=== PATIENT | female | born 1965 | race Caucasian/White ===

== ENCOUNTER → 2020-01-05 | Outpatient (CLI) | payer OTHER ==
--- NOTE | 2020-01-05 15:09 | Diagnostic Imaging Report ---
INDICATION: Low back pain. COMPARISON: None available. TECHNIQUE: Three views of the lumbar spine were obtained. FINDINGS: There is a compression deformity involving the superior endplate of L1. There may be some retropulsion of the posterior endplate into the spinal canal. Remainder of the lumbar vertebrae are normal in height. Intervertebral disc space heights are preserved. Scattered vascular calcifications. IMPRESSION: Compression injury of L1 may be a [address] of the lumbar spine without contrast for further assessment. Dictated by: Dictated on workstation # [id number]
== END ==
LOC: RAD FS 12:59
PROVIDERS: ATTEND Emergency Medicine
DX: S39.82XA Other specified injuries of lower back, initial encounter (principal); V89.2XXA Person injured in unspecified motor-vehicle accident, traffic, initial encounter
CPT/HCPCS: 72100

== ENCOUNTER → 2020-01-07 | Outpatient (CLI) | payer OTHER ==
--- NOTE | 2020-01-07 11:52 | Diagnostic Imaging Report ---
PROCEDURE: CT lumbar spine without contrast. TECHNIQUE: Multiple contiguous axial images were obtained through the lumbar spine without the use of intravenous contrast. Sagittal and coronal reformations were then performed. Auto Exposure Controls were utilized during the CT exam to meet ALARA standards for radiation dose reduction. INDICATION: Compression fracture with possible retropulsion. COMPARISON: Lumbar spine radiograph 01/05/2020. FINDINGS: There are 5 lumbar-type vertebral bodies. There is a burst fracture of L1 resulting in retropulsion and moderate to severe spinal canal stenosis. There is approximately 50% height loss of the L1 segment. The posterior elements appear spared. No other fractures identified. Moderate facet arthropathy at L4-S1. Partially calcified disc protrusion at L5-S1 results in at least mild spinal canal stenosis. No high-grade neural foraminal narrowing is identified. Cholecystectomy. Moderate atherosclerotic calcifications. Mild degenerative changes in the sacroiliac joints. IMPRESSION: Burst fracture of L1 vertebral body with retropulsion resulting in moderate to severe spinal canal stenosis. Recommend surgical consultation. Dictated by: Dictated on workstation # [id number]
== END ==
LOC: RAD FS 11:12
PROVIDERS: ATTEND Emergency Medicine
DX: S32.010A Wedge compression fracture of first lumbar vertebra, initial encounter for closed fracture (principal); M48.061 Spinal stenosis, lumbar region without neurogenic claudication; X58.XXXA Exposure to other specified factors, initial encounter
CPT/HCPCS: 72131

== ENCOUNTER → 2021-10-27 | Outpatient (CLI) | payer OTHER ==
[2021-10-27 15:20] LABS: CREATININE SERUM 0.61 MG/DL (0.60-1.30)
[2021-10-27 15:23] LABS: CALCIUM 9.8 MG/DL (8.5-10.1)
[2021-10-27 15:24] LABS: ALBUMIN 3.9 GM/DL (3.2-4.5); BILIRUBIN,TOTAL 0.2 MG/DL (0.1-1.0); TOTAL PROTEIN 7.3 GM/DL (6.4-8.2)
== END ==
LOC: LAB FS 14:26
PROVIDERS: ATTEND Registered Nurse Emergency
DX: E11.9 Type 2 diabetes mellitus without complications (principal); E55.9 Vitamin D deficiency, unspecified
CPT/HCPCS: 36415; 80053; 82043; 82306; 83036